=== PATIENT | female | born 1930 | race Caucasian/White ===

== ENCOUNTER → 2017-06-26 | Outpatient (CLI) | payer OTHER ==
[~2017-06-26] MED LIST: AMLO-110 PO; AMLO2.5T PO; APIX1TAB PO; CALC500C70 PO; CARV12.52 PO; CARV6.252 PO; LOSA50TA6 PO; MULT-506 PO; SIMV20TA5 PO
== END | disposition home or self-care (01) ==
LOC: C.RDSM 15:02
PROVIDERS: ATTEND Physical Medicine & Rehabilitation Sports Medicine
DX: M79.672 Pain in left foot (principal)